=== PATIENT | male | born 1940 | race Caucasian/White ===

== ENCOUNTER → 2019-05-19 | Outpatient (CLI) | payer OTHER, MEDICARE ==
[~2019-05-19] VITALS: Ht 182.9 cm; Wt 107.0 kg
[~2019-05-19] MED LIST: FELODIPINE ER10 MG PO; GABAPENTIN 100100 MG PO; IBUPROFEN 200200 M1 PO; MEDROLDOSEPACK PO; MOBIC15 MG PO; NABUMETONE 500500 M1 PO; NEURONTIN 300300 M1 PO; PANTOPRAZOLE SO40 M1 PO; ZESTRIL40 MG PO
[2019-05-19 10:24] VITALS: BP 148/79
--- NOTE | 2019-05-19 11:06 | NUR ---
Pain Clinic Assessment: 1. History of Osteoarthritis: Not Applicable History of Rheumatoid Arthritis: Not Applicable 2. Height: 6 ft. 0 in. 182.9 cm. Weight: 236.0 lb. oz. 107.049 kg. Patient's BMI: 32.0 3. Vital Signs: BP: 148/79 Pulse: 52 Resp: 16 Temp: 02 Sat: 98 ECG Mon: 4. Pain Intensity: 6 5. Fall Risk: Dizziness: N Needs help standing or walking: N Fallen in the last 3 months: N Fall risk comments: 6. Patient on Blood Thinner: None 7. History of Hypertension: Y 8. Opioid Therapy greater than 6 weeks: N Opiate Contract Signed: 9. Risk Assessment Tool Provided: 10. Functional Assessment Tool: 11. Recreational Drug Use: Never Drug Type: Tobacco Use: Never Smoker Tobacco Type: Amount or Packs/day: How Many Years: Alcohol Use: No Frequency: Quant:
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
== END ==
LOC: PAIN 06:44
DX: M54.12 Radiculopathy, cervical region (principal); M48.02 Spinal stenosis, cervical region; I10 Essential (primary) hypertension; K21.9 Gastro-esophageal reflux disease without esophagitis; M13.88 Other specified arthritis, other site; M54.5 Low back pain; Z88.0 Allergy status to penicillin; Z79.01 Long term (current) use of anticoagulants; Z79.84 Long term (current) use of oral hypoglycemic drugs; Z79.899 Other long term (current) drug therapy; Z90.49 Acquired absence of other specified parts of digestive tract

== ENCOUNTER → 2019-10-08 | Outpatient (CLI) | payer OTHER, MEDICARE ==
[~2019-10-08] VITALS: Ht 182.9 cm; Wt 110.2 kg
[~2019-10-08] MED LIST changes: +NEURONTIN 300M300 M2 PO
[2019-10-08 11:14] VITALS: BP 155/74
--- NOTE | 2019-10-08 11:20 | NUR ---
Pain Clinic Assessment: 1. History of Osteoarthritis: Not Applicable History of Rheumatoid Arthritis: Not Applicable 2. Height: 6 ft. 0 in. 182.9 cm. Weight: 243.0 lb. oz. 110.224 kg. Patient's BMI: 32.9 3. Vital Signs: BP: 155/74 Pulse: 54 Resp: 18 Temp: 02 Sat: 98 ECG Mon: 4. Pain Intensity: 6 5. Fall Risk: Dizziness: N Needs help standing or walking: N Fallen in the last 3 months: N Fall risk comments: 6. Patient on Blood Thinner: None 7. History of Hypertension: Y 8. Opioid Therapy greater than 6 weeks: N Opiate Contract Signed: 9. Risk Assessment Tool Provided: 0-LOW RISK 10. Functional Assessment Tool: 11. Recreational Drug Use: Never Drug Type: Tobacco Use: Never Smoker Tobacco Type: Amount or Packs/day: How Many Years: Alcohol Use: No Frequency: Quant:
--- NOTE | 2019-10-13 08:38 | HPC ---
[facility] [address] [address] PAIN MANAGEMENT CONSULTATION Name: ALISTAIR LUEVANO Room #: REG JANELLE ChavarriaRamesh#: [id number] Admission: 10/08/19 Attend Phys: Garrett Chambers MD Discharge: Date of : 39 Report #: [id number] THIS REPORT FOR: cc: Manjeet Disla MD, David W. MD Brown,Garrett Juan MD ~ CC: Manjeet Chambers DATE OF SERVICE: 10/08/2019 CHIEF COMPLAINT: "My neck and spine have started up and are hurting again." HISTORY: The patient is a 79-year-old gentleman who has been seen and followed in the pain clinic because of cervical radicular pain. He was using gabapentin and meloxicam. These medications have been helpful. As you may recall, his has cancer. He is the primary caregiver. He has noted over the last few weeks some increased pain and discomfort in his neck. He is having a popping sensation. This had been present in the past, but seems to have increased at this juncture. He has returned today and would like to continue with his previous medications. They were efficacious. He had no complication from their use. He has gained about 30 pounds since the lock down because of coronavirus. He has been staying inside. His did fall and fractured tailbone. She has had radiation treatments, which have left her with brittle bones. He would like to have the medications renewed. ALLERGIES: PENICILLIN. CURRENT MEDICATIONS: Lisinopril 40 mg, felodipine 10 mg, gabapentin 300 mg 1 p.o. t.i.d., Lasix in the past, pantoprazole in the past. PAIN CLINIC ASSESSMENT AND PQRS: 1. Height 6 feet, weight 236 pounds, BMI 32.0. 2. Vital signs: Blood pressure 150/78, pulse 52, respiratory rate 16, room air saturation 98%. 3. Pain intensity 10. 4. Fall history: The patient has not fallen in the last 3 months. 5. Blood thinner. The patient is not on a blood thinning medication. 6. Hypertension. The patient is not being treated for hypertension. 7. Opioids greater than 6 weeks. The patient is not on an opioid regimen. 8. Risk assessment tool, low for opioid use. 9. Recreational drug use. The patient denies. 10. Tobacco: The patient has never smoked. 11. Alcohol. The patient denies frequent use of alcoholic beverages. [facility] [address] [place] [address] PAIN MANAGEMENT CONSULTATION Name: ALISTAIR LUEVANO [facility] [id number] Admission: 10/08/19 Attend Phys: Garrett Chambers MD Discharge: Date of : 39 Report #: [id number] PHYSICAL EXAMINATION: GENERAL: The patient is a well-developed, well-nourished white male. Appears his stated age. He is alert and oriented x 3. His affect is appropriate. Speech is fluent. HEENT: Normocephalic, atraumatic. Extraocular eye muscles intact. The patient is wearing a mask. He perceives a grinding sensation and crackling in his neck with certain movements. He experienced that during our evaluation. HEART: Regular rate. ABDOMEN: Nontender. LUNGS: Generally clear. EXTREMITIES: Upper extremity muscle strength judged to be 4+/5 on the left side and 5-/5 on the right. IMPRESSION: 1. Cervical radiculopathy with stenosis at C4-C5 with pain down into the left shoulder. 2. Hypertension. 3. Gastroesophageal reflux. 4. Osteoarthritis. 5. Low back pain. RECOMMENDATIONS: We discussed treatment options with the patient. At this juncture, we will continue with his use of meloxicam. He was not having any problems with his GI at last use of this medication. He will stop taking the medication should he notice some GI complaints. He will continue with gabapentin 300 mg 1 p.o. t.i.d. He has been using this medication without any problems. We will also have the patient try a Medrol Dosepak. He will take his medication as prescribed. Should his pain continue to be problematic and not as effective as he would like, we will consider possibility of a cervical epidural steroid injection. Risks and benefits of using these medications have been discussed with the patient. He elects to proceed. A script for these medications have been sent to his pharmacy. He will call us if he has any concerns. We would like to thank you for letting us participate in his care. We hope he continues to improve. <ELECTRONICALLY SIGNED> By: Garrett Chambers MD 10/13/19 [id number] Garrett Chambers MD /chin
== END ==
LOC: PAIN 06:52
PROVIDERS: ATTEND Anesthesiology Pain Medicine
DX: M54.12 Radiculopathy, cervical region (principal); M48.02 Spinal stenosis, cervical region; I10 Essential (primary) hypertension; K21.9 Gastro-esophageal reflux disease without esophagitis; M19.90 Unspecified osteoarthritis, unspecified site; Z88.0 Allergy status to penicillin; Z79.899 Other long term (current) drug therapy